=== PATIENT | female | born 1990 | race Caucasian/White ===

== ENCOUNTER 2017-12-04 12:57 | Emergency (ER) | payer BC ==
--- NOTE | 2017-12-04 13:00 | ER Report ---
History and Physical Time Seen By MD: 13:00 HPI/ROS CHIEF COMPLAINT: Sacral pain HISTORY OF PRESENT ILLNESS: Patient is a 26-year-old female who presents to the emergency department after being referred from urgent care for sacral pain. Patient is just shy of 30 weeks with thus far uncomplicated . States over the past few days she's had pain to the tailbone area. She also notices a small amount of swelling to the area. The swelling does not hurt to touch. The pain is to the sacral bone and specifically worse with movement. Patient denies any fevers or chills. She denies any vaginal bleeding or abdominal or pelvic pain. Patient normally follows [facility] but is here in the [place] for some testing. REVIEW OF SYSTEMS: Respiratory: No cough, no dyspnea. Cardiovascular: No chest pain, no palpitations. Gastrointestinal: No vomiting, no abdominal pain. Musculoskeletal: No back pain. Allergies: Coded Allergies: Sulfa (Sulfonamide Antibiotics) (Verified Allergy, Unknown, 12/04/17) lanolin (Verified Allergy, Unknown, 12/04/17) Home Meds Active Scripts Hydrocodone Bit/Acetaminophen (HYDROCODON-ACETAMINOPHEN 5-325) 1 Each Tablet, 1 EACH PO Q6H for PAIN, #10 TAB 0 Refills Prov:BEENA GALVAN MD 12/04/17 Reported Medications Calcium Carbonate (CALCIUM) 500 Mg Tablet, 500 MG PO DAILY 12/04/17 Vits W-Ca,Fe,Fa(<1MG) ( VITAMINS) 1 Each Tablet, 1 EACH PO DAILY, TAB 12/04/17 Past Medical/Surgical History 30 weeks Constitutional Vital Sign - Last 24 Hours 12/04/17 12/04/17 13:02 13:30 Temp 98.0 Pulse 93 88 Resp 20 16 B/P (MAP) 117/67 118/74 (89) Pulse Ox 98 97 O2 Delivery Room Air Room Air Physical Exam General Appearance: The patient is alert, has no immediate need for airway protection and no current signs of toxicity. [ ] Eyes: Pupils equal and round no injection. Respiratory: Chest is non tender, lungs are clear to auscultation. Cardiac: regular rate and rhythm [ ] Gastrointestinal: Abdomen is soft and non tender, no masses, bowel sounds normal. Gravid, nontender; size equal to dates Musculoskeletal: Neck: Neck is supple and non tender. There is no erythema or purulence to the back specifically over the sacral area. Extremities have full range of motion and are non tender. Skin: No rashes or lesions. Medical Decision Making ED Course/Re-evaluation ED Course 12/04/2017 1:35:39 pm bedside ultrasound reveals an intrauterine with heart rate of 126 bpm. Soft tissue ultrasound of the area in question on the lower back reveals no evidence of fluid pocket or anything that would represent an abscess. Further there is no overlying erythema to suggest infection or cellulitis. Decision to Disposition Date: Dec 04, 2017 Decision to Disposition Time: 13:36 Depart Departure Latest Vital Signs Vital Signs Date Time Temp Pulse Resp B/P (MAP) Pulse Ox O2 Delivery O2 Flow Rate FiO2 12/04/17 13:30 88 16 118/74 (89) 97 Room Air 12/04/17 13:02 98.0 Impression: Primary Impression: Additional Impression: Coccygeal pain Condition: Condition Unchanged Disposition: HOME OR SELF-CARE New Scripts Hydrocodone Bit/Acetaminophen (HYDROCODON-ACETAMINOPHEN 5-325) 1 Each Tablet 1 EACH PO Q6H for PAIN, #10 TAB 0 Refills Prov: BEENA GALVAN MD 12/04/17 Patient Instructions: Coccyx Injury (ED), (ED) Additional Instructions: Call your [employer] tomorrow and discuss if you need follow-up sooner than your next routine OB appointment. Problem Qualifiers Primary Impression: Weeks of gestation: 29 weeks Qualified Codes: Z3A.29 - 29 weeks gestation of BEENA GALVAN MD Dec 04, 2017 13:00
[2017-12-04] MEDS ORDERED: CALC500T6 PO (13:06)
[2017-12-04] MEDS ORDERED: PREN-127 PO (13:06)
[2017-12-04 13:30] VITALS: BP 118/74
[2017-12-04] MEDS ORDERED: HYDR-385 PO (13:38)
== END 2017-12-04 13:52 | disposition home or self-care (01) ==
LOC: ER 13:22
DX: O26.893 Other specified pregnancy related conditions, third trimester (principal); Z3A.29 29 weeks gestation of pregnancy
CPT/HCPCS: 99284